=== PATIENT | female | born 1990 | race Caucasian/White ===

== ENCOUNTER 2018-02-26 17:40 | Emergency (ER) | payer OTHER ==
[2018-02-26 18:04] LABS: BILIRUBIN,URINE NEGATIVE (NEGATIVE); GLUCOSE, URINE (UA) NEGATIVE (NEGATIVE); KETONES,URINE (UA) NEGATIVE (NEGATIVE); LEUKOCYTE ESTERASE, URINE NEGATIVE (NEGATIVE); NITRITE,URINE NEGATIVE (NEGATIVE); OCCULT BLOOD,URINE NEGATIVE (NEGATIVE); PH,URINE 6.5 PH (5.0-7.5); PROTEIN,URINE NEGATIVE (NEGATIVE); UROBILINOGEN,URINE 0.2 (NORMAL) E.U./dL (NORMAL)
[2018-02-26 18:08] LABS: CLARITY,URINE CLEAR (CLEAR); HCG UR QUAL NEGATIVE
[2018-02-26] MEDS ORDERED: IBUPROFEN 800 MG TABLET PO STA (18:27)
[2018-02-26 18:29] LABS: BASOPHILS # (AUTO) 0.1 10^3/uL (0.0-0.1); BASOPHILS % (AUTO) 0.7 %; EOSINOPHILS # (AUTO) 0.2 10^3/uL (0.0-0.7); EOSINOPHILS % (AUTO) 1.9 %; HGB - HEMOGLOBIN 13.8 g/dL (12.0-16.0); LYMPHOCYTES # (AUTO) 3.3 10^3/uL (1.5-3.5); LYMPHOCYTES % (AUTO) 31.7 %; MEAN CORPUSCULAR HEMOGLOBIN 32.4 pg (27.0-31.0); MEAN CORPUSCULAR VOLUME 95.4 fL (81.0-99.0); MEAN PLATELET VOLUME 8.6 fL (7.9-10.8); MONOCYTES # (AUTO) 0.7 10^3/uL (0.0-1.0); MONOCYTES % (AUTO) 6.8 %; NEUTROPHILS # (AUTO) 6.1 10^3/uL (1.5-6.6); NEUTROPHILS % (AUTO) 58.9 %; PLT - PLATELET COUNT 272 10^3/uL (130-450); RED BLOOD COUNT 4.27 10^6/uL (4.20-5.40); RED CELL DISTRIBUTION WIDTH 13.1 % (12.0-15.0); WHITE BLOOD COUNT 10.3 x10^3/uL (4.8-10.8)
--- NOTE | 2018-02-26 18:29 | ED Physician Documentation ---
History of Present Illness - Stated complaint Stated Complaint: ABD PX - Chief complaint Chief Complaint: Abd Pain - History obtained from History obtained from: Patient - History of Present Illness Timing: Today Pain level max: 8 Pain level now: 6 Quality: sharp, aching - Additonal information Additional information: Patient is a 27-year-old female who presents to the emergency department with right lower abdominal pain for the past 3 hours. Started as a sharp pain has now turned into a dull ache. Her last menstrual period was approximately 2 weeks ago. She has an IUD in place, Mirena. This is been in place for the past 2 years. No fevers. Did have some nausea but no vomiting. No diarrhea or constipation. Has not taken anything for the pain. Better with rest, worse with movement and palpation. No dysuria, no urinary frequency. No vaginal discharge or bleeding. No itching. Review of Systems Ten Systems: 10 systems reviewed and negative Constitutional: denies: Fever, Chills Ears: denies: Ear pain Nose: reports: Congestion. denies: Rhinorrhea / runny nose Throat: denies: Sore throat Cardiac: denies: Chest pain / pressure Respiratory: denies: Cough GI: reports: Nausea. denies: Vomiting, Diarrhea, Hematemesis, Bloody / black stool : denies: Dysuria, Frequency, Hesitancy Skin: denies: Rash Musculoskeletal: denies: Neck pain, Back pain Neurologic: denies: Headache PD PAST MEDICAL HISTORY - Past Medical History Past Medical History: No - Past Surgical History Past Surgical History: No - Allergies Allergies/Adverse Reactions: Allergies Allergy/AdvReac Type Severity Reaction Status Date / Time No Known Drug Allergies Allergy Verified 02/26/18 17:57 - Living Situation Living Arrangement: reports: At home - Social History Does the pt smoke?: No Does the pt have substance abuse?: No PD ED PE NORMAL - Vitals Vital signs reviewed: Yes - General General: Alert and oriented X 3, No acute distress, Well developed/nourished - HEENT HEENT: Moist mucous membranes - Neck Neck: Supple, no meningeal sign - Cardiac Cardiac: RRR, Strong equal pulses - Respiratory Respiratory: No respiratory distress, Clear bilaterally - Abdomen Abdomen: Soft, Non distended, Other (Tender palpation right lower quadrant, in the pelvis consistent with ovarian location. No peritoneal signs) - Back Back: No CVA TTP - Derm Derm: Warm and dry - Extremities Extremities: No edema, No calf tenderness / cord - Neuro Neuro: Alert and oriented X 3 - Psych Psych: Normal mood, Normal affect Results - Vitals Vitals: Vital Signs - 24 hr 02/26/18 02/26/18 17:53 20:06 Temperature 37 C Heart Rate 76 70 Respiratory 18 16 Rate Blood Pressure 118/78 110/72 O2 Saturation 100 96 Oxygen O2 Source Room air - Labs Labs: Laboratory Tests 02/26/18 02/26/18 02/26/18 18:00 18:23 18:23 WBC 10.3 RBC 4.27 Hgb 13.8 Hct 40.7 MCV 95.4 MCH 32.4 H MCHC 34.0 RDW 13.1 Plt Count 272 MPV 8.6 Neut # (Auto) 6.1 Lymph # (Auto) 3.3 Callahan # (Auto) 0.7 Eos # (Auto) 0.2 Baso # (Auto) 0.1 Absolute Nucleated RBC 0.00 Nucleated RBC % 0.0 Sodium 137 Potassium 3.5 Chloride 103 Carbon Dioxide 27 Anion Gap 7.0 BUN 8 Creatinine 0.6 Estimated GFR (MDRD) 120 Glucose 95 Calcium 9.0 Total Bilirubin 0.6 AST 15 ALT 15 Alkaline Phosphatase 52 Total Protein 6.9 Albumin 4.0 Globulin 2.9 Albumin/Globulin Ratio 1.4 Lipase 28 Urine Color YELLOW Urine Clarity CLEAR Urine pH 6.5 Ur Specific Kensal 1.010 Urine Protein NEGATIVE Urine Glucose (UA) NEGATIVE Urine Ketones NEGATIVE Urine Occult Blood NEGATIVE Urine Nitrite NEGATIVE Urine Bilirubin NEGATIVE Urine Urobilinogen 0.2 (NORMAL) Ur Leukocyte Esterase NEGATIVE Ur Microscopic Review NOT INDICATED Urine Culture Comments NOT INDICATED Urine HCG, Qual NEGATIVE - Rads (name of study) Pelvic ultrasound Radiology: Prelim report reviewed, EMP read contemporaneously, See rad report ( Ovaries are normal in size for age. Blood flow seen in both ovaries. Complex cyst in the right ovary measuring 2.2 cm, possible corpus luteum cyst versus hemorrhagic cyst. IUD located centrally within the uterus.) PD MEDICAL DECISION MAKING - ED course Complexity details: reviewed results, re-evaluated patient, considered differential, d/w patient ED course: Patient is a 27-year-old female with right lower abdominal pain, located in the pelvis. Pelvic ultrasound shows a hemorrhagic cyst. Likely the cause of her pain. She declines any pain medication here or for home. We will follow closely with her doctor. Abdomen is soft, mildly tender in the right low pelvis on serial exam. Declines a pelvic examination. No vaginal bleeding or discharge. Patient counseled regarding signs and symptoms for which I believe and urgent re-evaluation would be necessary. Patient with good understanding of and agreement to plan and is comfortable going home at this time This document was made in part using voice recognition software. While efforts are made to proofread this document, sound alike and grammatical errors may occur. - Sepsis Event Vital Signs: Vital Signs - 24 hr 02/26/18 02/26/18 17:53 20:06 Temperature 37 C Heart Rate 76 70 Respiratory 18 16 Rate Blood Pressure 118/78 110/72 O2 Saturation 100 96 Oxygen O2 Source Room air Departure - Departure Disposition: 01 Home, Self Care Clinical Impression: Hemorrhagic ovarian cyst Condition: Good Instructions: ED Cyst Ovarian Follow-Up: your,doctor in 1 week [Other] Comments: Return if you worsen. You do have a hemorrhagic ovarian cyst under ultrasound today. Return especially for lightheadedness, worsening pain, difficulty breathing or any other new or change in symptoms. I expect that your pain should improve over the next 48 hours. Discharge Date/Time: 02/26/18 20:37
[2018-02-26 18:57] LABS: ALBUMIN/GLOBULIN RATIO 1.4 (1.0-2.2); BILIRUBIN,TOTAL 0.6 mg/dL (0.2-1.0); CREATININE 0.6 mg/dL (0.4-1.0); TOTAL PROTEIN 6.9 g/dL (6.7-8.2)
--- NOTE | 2018-02-26 19:57 | Ultrasound Report ---
Procedure Date: 02/26/2018 Accession Number: [id number] / [id number] Procedure: US - Pelvic w/Transvag+Doppler Comp CPT Code: FULL RESULT: EXAM: PELVIC ULTRASOUND EXAM DATE: 02/26/2018 07:03 PM. CLINICAL HISTORY: Right lower quadrant abdominal pain. COMPARISON: None. TECHNIQUE: Realtime transabdominal pelvic scan performed to identify the uterus and adnexa and as an overview of other pelvic structures, followed by transvaginal scan to provide greater detail of the uterus and adnexa, with static image documentation. FINDINGS: Uterus: 7.3 x 2.9 x 3.9 cm, volume 43.4 cc. Anteverted position. Normal overall size and echotexture. Masses: None. Endometrium: 3 mm. There is an IUD located centrally within the endometrial canal. Cervix: Unremarkable. Right Ovary: 3.8 x 2.7 x 3.6 cm, volume 19.1 cc. There is a complex cyst measuring 1.9 x 2.2 x 1.7 cm. Blood flow is seen in the right ovary on Doppler. Left Ovary: 2.9 x 1.8 x 2.2 cm. Blood flow present on Doppler. Free Fluid: None. Other: None. IMPRESSION: 1. Ovaries are normal in size for age. Blood flow seen in both ovaries. Complex cyst in right ovary measuring 2.2 cm, possible corpus luteum cyst or hemorrhagic cyst. 2. IUD located centrally within the uterus. RADIA
[2018-02-26 20:06] VITALS: BP 110/72
== END 2018-02-26 20:37 | disposition home or self-care (01) ==
LOC: ED 17:40
DX: N83.201 Unspecified ovarian cyst, right side (principal)
CPT/HCPCS: 36415; 76830; 76856; 80053; 81003; 81025; 83690; 85025; 93975; 99283; A9270; 81001; 87086

== ENCOUNTER 2019-04-02 14:20 | Outpatient (CLI) | payer OTHER ==
[2019-04-02 15:27] VITALS: BP 96/50
--- NOTE | 2019-04-02 15:27 | SLEEP CARE CONSULTATION ---
Information from patient questionnaire entered by Aleshia Marshall. I have reviewed and concur with the information entered by Aleshia Marshall. This document represents the service I personally performed and the decisions made by me, Stefani Anderson MD, [facility]. History of Present Illness Reason for Visit: New patient Chief Complaint: reports: Insomnia, Unrefreshed sleep, Excessive daytime sleepiness, Fatigue, Other (possible restless leg) Duration of Symptoms: 3+ years, more so in last year Usual bedtime: 2200 Time it takes to fall asleep: 45-60 minutes Snores at night: Yes Observed to quit breathing while asleep: No Number of times waking at night: 1-3 Reasons for waking at night: reports: Bathroom, Other (dreams, moving) Toss, Turn, or Twitch while sleeping: Yes Recalls having dreams: Yes (but do not remember what they are about) Usually gets out of bed at: 0615 weekday, [id number] weekend Feels refreshed in the morning: No Morning headache: Yes Sleepy or fatigued during the day: Yes Ever fallen asleep while driving: No Takes day naps: No Prior sleep studies: No Additional HPI information: I had the pleasure of seeing Ms. Salazar today regarding the possibility of her having a sleep disorder. As you know, she is a 28 year old lady who complains of restless leg which makes her feel like spider crawling over her legs (and she has arachnophobia). The patient tells me that she normally goes to bed around 10 pm, and it takes her approximately 45- 60 minutes to fall asleep. She took trazodone for 3 days and quit because it gave her headaches. She has been told that she snores lightly at night. She has never been observed to stop breathing in her sleep. She sleeps alone. She can recall waking up on the average of 1 - 3 times during the night. Most of the time she wakes up because of having to use the bathroom and dreams. She has never awakened because of her own snoring, choking, or having to gasp for air. There is a lot of tossing and turning in her sleep. She has somniloquy (sleep talking) but not somnambulism (sleep walking). Generally she can recall having dreams. In the morning she usually gets up out of the bed around 5:50 a.m. not feeling refreshed nor rested. One weekends she gets up at 10 11 am. She usually does have a morning headache that lasts until noon. During the day she complains of feeling sleepy and fatigued. Her score on Norton Sleepiness Scale is 3 out of 24. She has never fallen asleep while driving nor has had any accident due to sleepiness. She usually took naps during the day. Upon falling asleep during the day she denies having vivid dreams. She has never had sleep paralysis, experienced cataplexy but reports symptoms of restless leg syndrome. She reports having impaired concentration during the day. Subjective Initial Norton Sleepiness Scale score: 3 Past Medical History Past Medical History: reports: Anxiety, Depression Social History The patient's occupation is active . Patient is Single and lives in [place]. Have you smoked in the past 12 months: Yes Cigarettes per day (20/pack): 10 Years of smokin Smoking Pack Years: 4.5 Alcohol use: Yes Alcohol amount and frequency: 1-2 drinks/month Caffeine use: Yes Caffeine amount and frequency: 1 16oz/day Family History Family history of sleep disordered breathing: Yes Family Hx Sleep Apnea: Mother: Snoring (mother: sleep disturbances due to anxiety about nightmares), Grandparent: Snoring Allergies and Home Medications Drug allergies reviewed: Yes Home medication list reviewed: Yes Review of Systems Weight gain over past 5 years: 28 Weight loss over past 5 years: 28 Cardiovascular: denies: high blood pressure, palpitations, chest pain, irregular heart rate or pulse, leg or foot swelling, have to sleep sitting up, other Respiratory: denies: shortness of breath, wheeze, sputum production, chronic cough, other Gastrointestinal: reports: abdominal pain, other (chronic constipation/possible [employer] causes) Urinary: reports: frequency Neurological: reports: headaches Psychiatric: reports: anxiety, depression Ear/Nose/Throat: reports: nasal congestion, sinus problems, tonsillectomy Endocrine: denies: thyroid disease, history of goiter, sluggishness, too hot or cold, excessive thirst, increased appetite, increased urination, unexplained weakness, other Musculoskeletal: denies: joint pain, neck pain, back pain, joint swelling, muscle pain or cramping, mobility problems, other Immunologic: reports: sneezing Physical Exam Vital signs obtained and entered by: Dr. Anderson Blood Pressure: 96/50 Cuff size: long Heart Rate: 71 O2 Saturation: 99 Height: 5 ft 6 in Weight (kg): 180 lb Body Mass Index: 29.0 BMI Classification: Overweight Neck circumference: 14.5 Mood/affect: normal HEENT: No craniofacial malformation Nostrils: patent to airflow Turbinates: normal Septum: midline Mouth and throat: narrow oropharynx Soft palate: long Hard palate: normal Uvula: normal Uvula visualization: 50% Mallampati Class II Tongue: normal in size Tonsils: absent bilaterally Chin and jaw: normal size and position Neck: normal w/o lymphadenopathy or thyromegaly Heart: regular rate and rhythm Lungs: clear bilaterally Abdomen: soft, non-tender Extremities: no edema or clubbing Neurologic: intact, no focal deficits Impression and Plan IMPRESSION: 1. Restless leg syndrome, based on her description of the discomfort and the prevalence in the evening. The cause of restless leg syndrome is typically unknown. Few known causes are iron deficiency, renal failure, and selective serotonin reuptake inhibitors. Iron and ferritin levels are recommended in addition to the routine blood work. This patient is taking Effexor which could aggravate the condition. An in-laboratory polysomnography will be ordered to look into sleep disrupting conditions. Most likely, we will see periodic leg movement of sleep. Sleep-disordered breathing is a possibility given snore, frequent awakenings, unrefreshed sleep, and persistent fatigue. Narrow oropharynx and obesity are common predisposing factors for obstructive sleep apnea-hypopnea syndrome. Pathophysiology of sleep-disordered breathing was discussed. I recommend proceeding to polysomnography to confirm the diagnosis and to assess severity. I informed the patient of what the sleep studies involve and after some discussion, she agreed to proceed. 2. Insomnia, due to delayed sleep phase syndrome. Her true sleep-wake pattern is that of the weekends when she goes to bed late and wake up as late as 11 am. The patient was advised to not wake up past 7 am on the weekends. Sleep onset insomnia can also makes her more prone to the restless leg syndrome. Plan: 1. Schedule polysomnography and return in 1 to 2 weeks after the study to discuss result and initiate therapy. 2. Maintain a regular wake up time and spend no more than 8 hours in bed at night. Avoid naps. 3. Attempt to lose weight. 4. Consider switch Effexor to Wellbutrin which has the least effect on restless leg syndrome. I spent 100% of the 15 minute visit [id number] with the patient with greater than 50% of this was spent time counseling the patient and coordination of care.
== END 2019-04-02 14:21 | disposition home or self-care (01) ==
LOC: SC 14:20
PROVIDERS: ATTEND Internal Medicine Pulmonary Disease
DX: G25.81 Restless legs syndrome (principal); G47.00 Insomnia, unspecified; R06.83 Snoring; G47.8 Other sleep disorders; R53.83 Other fatigue
CPT/HCPCS: 99203; 99212

== ENCOUNTER 2019-04-10 20:34 | Outpatient (CLI) | payer OTHER | END 2019-04-10 20:35 | disposition home or self-care (01) | LOC: SC 20:34 | PROVIDERS: ATTEND Internal Medicine Pulmonary Disease | DX: R06.83 Snoring (principal) | CPT/HCPCS: 95810 ==

== ENCOUNTER 2019-04-27 12:35 | Emergency (ER) | payer OTHER ==
[2019-04-27 12:47] VITALS: BP 117/70
[2019-04-27] MEDS ORDERED: PSEUDOEPHEDRINE 30 MG TABLET PO STA (13:22)
[2019-04-27] MEDS ORDERED: ALBUTEROL NEB 2.5 MG/3 ML INH STA (13:22)
[2019-04-27] MEDS ORDERED: predniSONE 20 MG TABLET PO STA (13:22)
--- NOTE | 2019-04-27 13:25 | ED Physician Documentation ---
PD HPI URI - Stated complaint Stated Complaint: COUGH/SORE THROAT - Chief complaint Chief Complaint: Heent - History obtained from History obtained from: Patient - History of Present Illness Timing - onset: How many weeks ago (2) Timing duration: Weeks (2) Timing details: Gradual onset Pain level max: 4 Pain level now: 3 Associated symptoms: Chills, Ear pain, Nasal congestion, Rhinorrhea, Sore throat, Productive cough (green), Dyspnea (better with albuterol). No: Fever, Hemoptysis, Chest pain, NVD, Bilateral edema Contributing factors: Sick contact Improves by: Rest Worsened by: Activity, Breathing - Additional information Additional information: Patient was seen last week at the [facility] for same. Placed on azithromycin. Not improved. Attempted to be seen again today but was referred here. Review of Systems Constitutional: denies: Fever Nose: reports: Rhinorrhea / runny nose, Congestion GI: denies: Vomiting, Diarrhea : denies: Now EGA Skin: denies: Rash Musculoskeletal: denies: Neck pain, Back pain Neurologic: denies: Headache PD PAST MEDICAL HISTORY - Past Medical History Past Medical History: No - Past Surgical History Past Surgical History: No HEENT: Tonsil/Adenoidectomy - Present Medications Home Medications: Ambulatory Orders Medication Instructions Recorded Confirmed Benzonatate [Tessalon Perle] 100 - 200 mg PO TID PRN #30 capsule 04/27/19 Cetirizine HCl/Pseudoephedrine 1 each PO BID PRN #30 tab.er.12h 04/27/19 [Zyrtec-D Tablet] predniSONE [Prednisone] 40 mg PO DAILY #10 tablet 04/27/19 - Allergies Allergies/Adverse Reactions: Allergies Allergy/AdvReac Type Severity Reaction Status Date / Time No Known Drug Allergies Allergy Verified 04/27/19 12:43 - Social History Does the pt smoke?: No Smoking Status: Never smoker Does the pt drink ETOH?: No Does the pt have substance abuse?: No - Immunizations Immunizations are current?: Yes PD ED PE NORMAL - Vitals Vital signs reviewed: Yes - General General: Alert and oriented X 3, No acute distress, Well developed/nourished - HEENT HEENT: PERRL, Ears normal, Moist mucous membranes, Pharynx benign - Neck Neck: Supple, no meningeal sign, No adenopathy - Cardiac Cardiac: RRR, Strong equal pulses - Respiratory Respiratory: No respiratory distress, Other (Diminished breath sounds bilaterally) - Abdomen Abdomen: Soft, Non tender, Non distended - Derm Derm: Warm and dry - Extremities Extremities: No edema - Neuro Neuro: Alert and oriented X 3 - Psych Psych: Normal mood, Normal affect Results - Vitals Vitals: Vital Signs - 24 hr 04/27/19 04/27/19 12:43 13:50 Temperature 36.7 C Heart Rate 92 81 Respiratory 16 16 Rate Blood Pressure 117/70 O2 Saturation 98 Oxygen O2 Source Room air - Rads (name of study) cxr Radiology: Prelim report reviewed, EMP read contemporaneously, See rad report (normal) PD MEDICAL DECISION MAKING - ED course Complexity details: reviewed results, re-evaluated patient, considered differential, d/w patient ED course: 28-year-old female with what appears to be a viral upper respiratory infection. She is well-appearing, nontoxic. Afebrile. No hypoxia. No pneumonia on chest x-ray. Feels better after steroids, pseudoephedrine and nebulizer treatment. Will place on steroids and decongestants for home. Patient counseled regarding signs and symptoms for which I believe and urgent re-evaluation would be necessary. Patient with good understanding of and agreement to plan and is comfortable going home at this time This document was made in part using voice recognition software. While efforts are made to proofread this document, sound alike and grammatical errors may occur. Departure - Departure Disposition: 01 Home, Self Care Clinical Impression: Viral URI with cough Condition: Good Instructions: ED URI Viral Follow-Up: MOJGAN PAGE [Primary Care Provider] - Within 1 week Prescriptions: Benzonatate [Tessalon Perle] 100 - 200 mg PO TID PRN #30 capsule PRN Reason: Cough Cetirizine HCl/Pseudoephedrine [Zyrtec-D Tablet] 1 each PO BID PRN #30 tab.er.12h PRN Reason: nasal congestion predniSONE [Prednisone] 40 mg PO DAILY #10 tablet Comments: Thankfully there is no pneumonia on your chest x-ray. This will not improve with antibiotics. This is a viral illness and will take time. Drink plenty of fluids and rest. Return if you worsen. Discharge Date/Time: 04/27/19 14:19
--- NOTE | 2019-04-27 14:17 | XRAY Report ---
Reason: cough Procedure Date: 04/27/2019 Accession Number: [id number] / [id number] Procedure: XR - Chest 2 View X-Ray CPT Code: 00171 FULL RESULT: EXAM: CHEST RADIOGRAPHY EXAM DATE: 04/27/2019 01:41 PM HISTORY: cough COMPARISON: NONE TECHNIQUE: Two Views FINDINGS: Lungs/Pleura: The lungs are clear. No consolidation, edema or pleural effusion. Cardiomediastinal silhouette: Unremarkable accounting for technique. Other: None. IMPRESSION: Normal two view chest. RADIA
== END 2019-04-27 14:19 | disposition home or self-care (01) ==
LOC: ED 12:35
DX: J06.9 Acute upper respiratory infection, unspecified (principal)
CPT/HCPCS: 71046; 94640; 94664; 99282; 99283; A9270; J7512

== ENCOUNTER 2019-05-16 09:09 | Outpatient (CLI) | payer OTHER ==
[2019-05-16 10:27] VITALS: BP 102/70
--- NOTE | 2019-05-16 10:27 | SLEEP CARE CONSULTATION ---
Information from patient questionnaire entered by Aleshia Marshall. I have reviewed and concur with the information entered by Aleshia Marshall. This document represents the service I personally performed and the decisions made by me, Eva Juan RN, MSN, [employer]. History of Present Illness Initial [place] Sleepiness Scale score: 3 Current [place] Sleepiness Scale score: 3 Additional HPI information: ALBINO ZUNIGA returns for follow up of the recently performed polysomnography and informed of the findings. I explained the pathophysiology behind obstructive sleep apnea. Patient does not have sleep apnea and was advised how weight gain could increase the risk of developing sleep apnea in the future. I strongly encouraged the patient to lose weight. Patient has mild snoring. Snoring can be reduced by weight loss. Weight loss is best achieved with diet consult. She is working with a rf test engineer and head athletic trainer. Snoring can also be treated with an oral appliance from a dentist but not indicated at this time as patient's snoring mild. Her TMJ would also defer use as could aggravate. In addition, an ENT evaluation can be do to see if other treatment is indicated as she has chronic nasal congestion/ sinus infection. Patient counseled not drink alcohol less than 4 hours before bedtime as it can increase snoring and apnea. Patient does not drink alcohol. Patient was cautioned about risks of drowsy driving until sleepiness symptoms resolve. Patient denies drowsy driving. [facility] patient education on snoring and sleep apnea given and reviewed. Further review of her sleep complaints; She reports she has to cycle through different positions to get comfortable to sleep due to hip and eventually leg discomfort and pain. She reports low back pain / pressure that has worsened lately. She has to change driving position and flex hips with leg bent to increase comfort. This has been going on off and on for about 3 years. Sleep Study - Polysomnography Polysomnography findings: The quality of the study is good. The patient had slightly reduced sleep efficiency due to frequent awakenings after the sleep onset. The sleep architecture was abnormal for sleep fragmentation and reduced amount of time spent in REM sleep. Respiratory monitoring showed no significant sleep disordered breathing (AHI = 1.9) or hypoxia (sendy oxygen saturation of 89%). The patient slept adequately in supine position (supine AHI = 2.5; non-supine = 1.20). Snore was light in intensity. There was no periodic leg movement of sleep. Cardiac rhythm was normal sinus rhythm without significant arrhythmia. No abnormal behavior (parasomnia) observed during the night. Allergies and Home Medications Known drug allergies: No Home medication list reviewed: Yes (Effexor dose increased and trazadone stopped) Allergy and home medication list: Effexor 200mg daily ibuprofen 400-800mg daily Biotin 10,000 mcg acidophilus 2 billion CFUs Valtrex 1 gm polyethiline glyucol 17gm benefiber 2 tsp Review of Systems Review of systems same as previous: Yes Physical Exam Blood Pressure: 102/70 Cuff size: regular Heart Rate: 87 O2 Saturation: 98 Height: 5 ft 6 in Weight: 186 lb 8 oz (with boots ) Body Mass Index: 30.1 BMI Classification: Obesity Class 1 Impression and Plan 1. Snoring but no significant sleep disordered breathing. Patient advised that often weight loss will reduce snoring as well as apnea risk. She is working on losing weight with a rf test engineer and head athletic trainer. Due to her chronic nasal congestion and sinus infections, an ENT evaluation could be helpful to reduce incidence. Snoring can disrupt sleep and contribute to daytime fatigue / sleepiness. 2. Chronic low back pain and hip pain with apparent neuropathy that is affecting sleep initiation and maintenance. She has to change positions frequently to get to sleep due to discomfort of low back, hips and legs that can be ache, pain, tingling and creepy crawly. This discomfort is also increased when sitting for long periods such as driving, needing to change position of hip for increased comfort or pain gets worse. This presentation does not seem to be restless leg syndrome (RLS) as initially thought in initial consult and there is no significant periodic limb movement of sleep that is often associated with RLS. She was advised to follow up with her PCP for further evaluation. A xray of hip and spine and MRI is recommended to determine etiology and proper treatment. * Attempt to lose weight * Avoid alcohol consumption near bedtime * The patient is cautioned about driving until sleepiness is completely resolved. * Follow up with PCP for further evaluation of back, hip and leg pain and associated neuropathy. * Recommend xrays of hip / spine and MRI of spine * Return as needed. I spent 100% of this 40 minute visit face to face with the patient with greater than 50% of this was spent time counseling the patient and coordination of care.
== END 2019-05-16 09:10 | disposition home or self-care (01) ==
LOC: SC 09:09
PROVIDERS: ATTEND Nurse Practitioner Family
DX: R06.83 Snoring (principal); R53.83 Other fatigue; E66.9 Obesity, unspecified; Z68.30 Body mass index [BMI] 30.0-30.9, adult
CPT/HCPCS: 99212; 99215

== ENCOUNTER 2019-05-30 12:48 | Outpatient (CLI) | payer OTHER ==
--- NOTE | 2019-05-31 10:23 | MRI Report ---
Reason: LOW BACK PAIN, BILATERAL RADICULOPATHY Procedure Date: 05/30/2019 Accession Number: [id number] / [id number] Procedure: MRI - Lumbar Spine W/O CPT Code: Final Report FULL RESULT: EXAM: MRI LUMBAR SPINE WITHOUT CONTRAST EXAM DATE: 05/30/2019 01:54 PM. CLINICAL HISTORY: LOW BACK PAIN, BILATERAL LOWER EXTREMITY RADICULOPATHY. COMPARISON: None. TECHNIQUE: Multiplanar, multisequence T1-weighted and fluid-sensitive sequences of the lumbar spine from T11 to S2 without contrast. Other: None. FINDINGS: Spinal Canal: The conus terminates at L1-L2. The conus medullaris and cauda equina are unremarkable. Alignment: No scoliosis or spondylolisthesis. Bone Marrow: Five [id number] lumbar vertebral bodies are assumed. No gross fractures or bone lesions. No bone marrow replacement. Disk Levels/Facets: T12-L1: Unremarkable. L1-L2: Unremarkable. L2-L3: Unremarkable. L3-L4: There is a mild disk bulge. There is no central canal narrowing. No neural foraminal narrowing. L4-L5: There is a small central disk protrusion. This measures up to 3 mm in AP dimension. There is mild central canal narrowing. No neural foraminal narrowing. L5-S1: There is disk height loss. There is a small central disk protrusion. There is mild facet hypertrophy. No central canal narrowing. Mild bilateral neural foraminal narrowing. Comment: The following findings are so common in adults without low back pain that while we report their presence, they must be interpreted with caution and in the context of the clinical situation. (Reference Gingervik et al, Spine 2001) Prevalence of findings in patients without low back pain: Disk degeneration (any evidence): 92% Disk desiccation/T2 signal loss: 83% Disk height loss: 56% Disk bulge: 64% Disk protrusion: 32% Annular tear/high intensity zone: 38% Musculature: Normal. No edema or fatty atrophy. Other: The partially visualized retroperitoneum is unremarkable. IMPRESSION: 1. L4-L5 small disk protrusion with mild central canal narrowing. 2. L5-S1 mild bilateral neural foraminal narrowing. RADIA
== END 2019-05-30 12:49 | disposition home or self-care (01) ==
LOC: DI 12:48
PROVIDERS: ATTEND Physician Assistant
DX: M51.26 Other intervertebral disc displacement, lumbar region (principal); M51.37 Other intervertebral disc degeneration, lumbosacral region; M51.27 Other intervertebral disc displacement, lumbosacral region; M47.817 Spondylosis without myelopathy or radiculopathy, lumbosacral region
CPT/HCPCS: 72148

== ENCOUNTER 2019-07-01 17:35 | Emergency (ER) | payer OTHER ==
[2019-07-01 17:43] VITALS: BP 112/75
[2019-07-01] MEDS ORDERED: BUFFERED LIDOCAINE 10 ML SYRINGE SUBQ STA (17:51)
[2019-07-01] MEDS ORDERED: CLINDAMYCIN 150 MG CAPSULE PO STA (17:51)
--- NOTE | 2019-07-01 17:53 | ED Physician Documentation ---
PD HPI SKIN - Stated complaint Stated Complaint: LUMP/SWELLING/PAIN NEAR GROIN - Chief complaint Chief Complaint: Wound - History obtained from History obtained from: Patient (She has had a lump in her left groin for about a year but it started become swollen more swollen and red and painful over the last night or 2. No fevers. No possibility of .) Review of Systems Constitutional: denies: Fever, Chills Cardiac: reports: Reviewed and negative Respiratory: reports: Reviewed and negative PD PAST MEDICAL HISTORY - Past Medical History Past Medical History: No Cardiovascular: None Respiratory: None Neuro: None Endocrine/Autoimmune: None GI: None EGG PROCESSOR: None : None HEENT: None Psych: None Musculoskeletal: None Derm: None - Past Surgical History Past Surgical History: No HEENT: Tonsil/Adenoidectomy - Present Medications Home Medications: Ambulatory Orders Medication Instructions Recorded Confirmed Benzonatate [Tessalon Perle] 100 - 200 mg PO TID PRN #30 capsule 04/27/19 Cetirizine HCl/Pseudoephedrine 1 each PO BID PRN #30 tab.er.12h 04/27/19 [Zyrtec-D Tablet] predniSONE [Prednisone] 40 mg PO DAILY #10 tablet 04/27/19 Clindamycin HCl [Clindamycin 300MG 300 mg PO Q6H #28 capsule 07/01/19 CAP] Hydrocodone/Acetaminophen 1 - 2 each PO Q6H PRN #10 tablet 07/01/19 [Hydrocodon-Acetaminophen 5-325] - Allergies Allergies/Adverse Reactions: Allergies Allergy/AdvReac Type Severity Reaction Status Date / Time No Known Drug Allergies Allergy Verified 07/01/19 17:38 - Social History Does the pt smoke?: No Smoking Status: Never smoker Does the pt drink ETOH?: No Does the pt have substance abuse?: No - Immunizations Immunizations are current?: Yes - POLST Patient has POLST: No PD ED PE NORMAL - Vitals Vital signs reviewed: Yes - General General: Alert and oriented X 3, No acute distress - Neck Neck: Supple, no meningeal sign, No bony TTP - Female Female : Other (There is a pointed cyst or abscess superolateral to the left labia, note that all exams and interventions were done with Pilar wick nurse at the bedside.) - Derm Derm: No rash - Neuro Neuro: Alert and oriented X 3, Normal speech Results - Vitals Vitals: Vital Signs - 24 hr 07/01/19 17:38 Temperature 36.5 C Heart Rate 76 Respiratory 16 Rate Blood Pressure 112/75 O2 Saturation 100 Oxygen O2 Source Room air Procedures - Abscess I&D (location) L groin Preparation: Alcohol, Lidocaine 1% Incision: Incised with scalpel, Purulent drainage, Loculations broken, Culture obtained Other: Pt tolerated well, Dressing applied Departure - Departure Disposition: 01 Home, Self Care Clinical Impression: Infected sebaceous cyst Condition: Good Record reviewed to determine appropriate education?: Yes Instructions: ED Cyst Sebaceous Infec IandD Prescriptions: Clindamycin HCl [Clindamycin 300MG CAP] 300 mg PO Q6H #28 capsule Hydrocodone/Acetaminophen [Hydrocodon-Acetaminophen 5-325] 1 - 2 each PO Q6H PRN #10 tablet PRN Reason: pain Comments: As discussed, these have a tendency to come back if incised when they are infected, follow-up with the surgeon in a month or 2 if you still feel a lump there for definitive excision. Return for new or worsening symptoms. We are performing a wound culture, the results should be done in 48-72 hours. If antibiotic change is necessary we will call you. Return if worse in the meantime, especially if you develop increased pain, fevers, cannot keep down the medication. Otherwise follow-up with your physician in approximately 2-3 days.
== END 2019-07-01 18:40 | disposition home or self-care (01) ==
LOC: ED 17:35
DX: L72.3 Sebaceous cyst (principal); L02.214 Cutaneous abscess of groin
CPT/HCPCS: 10060; 87070; 87205; 99283; 99284; A9270